=== PATIENT | male | born 1960 | race Caucasian/White ===

== ENCOUNTER 2019-08-14 04:58 | Inpatient (IN) ==
[2019-08-07 18:08] LABS: Appearance,Urine CLEAR; Bilirubin,Urine NEG (NEG); Color,Urine YELLOW; Culture Indicated,Urine NO; Glucose,Urine (UA) NEGATIVE (NEG); Ketones,Urine 5/TR mg/dL (NEG); Leukocyte Esterase,Urine NEG /uL (NEG); Nitrate,Urine NEG (NEG); Protein,Urine NEG (NEG); Specific Gravity,Urine 1.024 (1.000-1.035); Urine Blood NEG mg/dL (<0.03)
[2019-08-07 21:24] LABS: Basophils # (Auto) 0.05 K/mcL (0.00-0.30); Basophils % (Auto) 0.4 % (0.0-2.0); Eosinophils # (Auto) 0.11 K/mcL (0.00-0.70); Granulocytes % (Auto) 78.1 % (38.0-78.0); Hemoglobin 18.5 g/dL (13.7-17.5); Lymphocytes # (Auto) 1.54 K/mcL (1.50-4.80); Lymphocytes % (Auto) 13.8 % (15.5-49.0); Mean Cell Volume 91.1 fL (80.0-100.0); Mean Corpuscular HGB Conc 33.6 g/dL (31.0-36.0); Mean Platelet Volume 12.3 fL (7.4-10.4); Monocytes # (Auto) 0.75 K/mcL (0.10-0.90); Monocytes % (Auto) 6.7 % (1.0-12.0); Platelet Count 190 K/mcL (140-440); RBC 6.04 M/mcL (4.63-6.08); Red Cell Distribution Width 13.1 % (11.5-14.5); WBC 11.2 K/mcL (4.50-11.00)
[2019-08-07 21:40] LABS: AST/SGOT 27 U/l (0-37); Bilirubin,Total 0.6 mg/dL (0.0-1.0); Blood Urea Nitrogen 18 mg/dl (6-20); Carbon Dioxide 21 mmol/L (22-30); Chloride 103 mmol/L (96-108); Glucose 79 mg/dL (70-105)
[2019-08-07 23:38] LABS: Estimated Average Glucose(eAG) 100 mg/dL; Hemoglobin A1C 5.1 % HGB (4.0-6.0)
[2019-08-08 04:23] LABS: ALT/SGPT 26 U/l (0-40); Albumin 4.7 gm/dL (3.2-5.2); Alkaline Phosphatase 48 U/L (39-117); Globulin 2.3 gm/dL (2.2-3.7); Glomerular Filtration Rate 94
[2019-08-14] MEDS ORDERED: IPRATROPIUM/ALBUTEROL 3 ML AMPUL.NEB NEB PRN ×2 (05:00→09:14)
[2019-08-14] MEDS ORDERED: SCOPOLAMINE 1 PATCH PATCH TOPICAL PRN (05:00)
[2019-08-14] MEDS ORDERED: 0.9 % SODIUM CHLORIDE 9 ML, KETOROLAC 30 MG, ROPIVACAINE HCL/PF 49.5 ML, EPINEPHrine 0.... IJ SCH (06:00)
[2019-08-14] MEDS ORDERED: ceFAZolin 3 GM in DEXTROSE 5% IN WATER 50 ML IV SCH (06:00)
[2019-08-14] MEDS ORDERED: PREGABALIN 75 MG CAPSULE PO SCH (06:00)
[2019-08-14] MEDS ORDERED: oxyCODONE 10 MG TAB.ER.12H PO SCH (06:00)
[2019-08-14] MEDS ORDERED: CELECOXIB 200 MG CAPSULE PO SCH (06:00)
[2019-08-14] MEDS ORDERED: ROPIVACAINE HCL/PF 20 ML VIAL IJ ONE (07:55)
[2019-08-14] MEDS ORDERED: ONDANSETRON 4 MG/2 ML VIAL IV ONE (07:55)
[2019-08-14] MEDS ORDERED: KETAMINE 100 MG/ML ML IV ONE (07:55)
[2019-08-14] MEDS ORDERED: DEXAMETHASONE 10 MG/ML VIAL IV ONE (07:55)
[2019-08-14] MEDS ORDERED: TRANEXAMIC ACID 1,000 MG/10 ML VIAL IV ONE ×2 (07:55→09:55)
[2019-08-14] MEDS ORDERED: ePHEDrine 50 MG/ML AMPUL IV ONE (07:55)
[2019-08-14] MEDS ORDERED: LIDOCAINE HCL/PF 100 MG/5 ML SYRINGE IV ONE (07:55)
[2019-08-14] MEDS ORDERED: PROPOFOL 200 MG/20 ML VIAL IV ONE (07:55)
[2019-08-14] MEDS ORDERED: ACETAMINOPHEN 1,000 MG/100 ML BOTTLE IV ONE (09:14)
[2019-08-14] MEDS ORDERED: diphenhydrAMINE 50 MG/ML VIAL IV PRN (09:14)
[2019-08-14] MEDS ORDERED: ONDANSETRON 4 MG/2 ML VIAL IV PRN ×2 (09:14→09:55)
[2019-08-14] MEDS ORDERED: NALOXONE HCL 0.4 MG/ML VIAL IV PRN (09:14)
[2019-08-14] MEDS ORDERED: MEPERIDINE 25 MG/ML SYRINGE IV PRN (09:14)
[2019-08-14] MEDS ORDERED: LACTATED RINGERS 250 ML IV PRN (09:14)
[2019-08-14] MEDS ORDERED: PROMETHAZINE 25 MG/ML VIAL IV PRN (09:14)
[2019-08-14] MEDS ORDERED: fentaNYL 100 MCG/2 ML VIAL IV PRN (09:14)
[2019-08-14] MEDS ORDERED: LACTATED RINGERS 1,000 ML IV SCH (09:15)
[2019-08-14] MEDS ORDERED: GENTAMICIN SULFATE 800 MG/20 ML VIAL IR ONE (09:20)
[2019-08-14] MEDS ORDERED: FLEETS ADULT ENEMA PR PRN (09:55)
[2019-08-14] MEDS ORDERED: HYDROmorphone 1 MG/ML SYRINGE IV PRN (09:55)
[2019-08-14] MEDS ORDERED: BISACODYL 10 MG SUPP.RECT PR PRN (09:55)
[2019-08-14] MEDS ORDERED: POLYETHYLENE GLYCOL 3350 17 GM PACKET PO PRN (09:55)
[2019-08-14] MEDS ORDERED: MAGNESIUM HYDROXIDE 30 ML ORAL.SUSP PO PRN (09:55)
[2019-08-14] MEDS ORDERED: BENZOCAINE/MENTHOL 1 LOZENGE PO PRN (09:55)
--- NOTE | 2019-08-14 09:55 | Brief Operative Note ---
Brief Operative Note Date of procedure: 08/14/19 Pre-op diagnosis: Left knee DJD Post-op diagnosis: same Procedure: Left robotic assisted total knee arthroplasty Grafts/Implants: Yes ([place] Triathlon 8 CR femur, 7 tibia, 11mm insert, 39 patella) Anesthesia: spinal and GLMA Findings: severe arthritis Complications: none Surgeon: Ford Shore Grocery Deliverer: Parish Zamora Estimated blood loss (cc): 30 Specimens Removed/Pathology: none sent Condition: stable Disposition: PACU
[2019-08-14] MEDS ORDERED: ceFAZolin 1 GM VIAL IV SCH (10:00)
--- NOTE | 2019-08-14 10:16 | Operative Note ---
DATE OF OPERATION: 08/14/2019 PREOPERATIVE DIAGNOSIS: Left knee severe osteoarthritis. POSTOPERATIVE DIAGNOSIS: Left knee severe osteoarthritis. PROCEDURE PERFORMED: Left robotic-assisted total knee arthroplasty placing a Thierry Triathlon size 8 cruciate retaining femoral component, size 7 tibial baseplate, an 11 mm X3 tibial insert with a 39 mm patellar button. SURGEON: Ford Shore M.D. WATER RESOURCE PROJECT MANAGER: Sumanth Zamora PA-C. The PA's assistance was required for the safe and efficient completion of the entire case. This provider's expertise and technical skill were required throughout the case. The PA assisted with preoperative coordination, intraoperative retraction, wound closure, dressing and splint application, as well as postoperative documentation and care coordination. ANESTHESIA: Spinal plus general. DRAINS: None. SPECIMENS: Bone cuts were discarded. BLOOD LOSS: 30 mL. POSTOPERATIVE CONDITION: Stable. INDICATIONS FOR SURGERY: This is a 58-year-old male who has had longstanding, progressive worsening, severe knee pain. Radiographs showed [id number] osteoarthritis. FINDINGS AT SURGERY: As above. Post implantation showed good limb alignment, patellar tracking, and joint stability. PROCEDURE IN DETAIL: The patient had been seen preoperatively. Informed consent had been obtained after discussion of risks and benefits of surgery. Risks including, but not limited to, bleeding, possibly requiring transfusion; infection, possibly requiring implant removal and prolonged IV antibiotics; injury to nerves, blood vessels, and other surrounding structures; anesthetic risks; incomplete or no resolution of symptoms; swelling; stiffness; pain; instability; DVT and pulmonary embolus risks; and the possibility of needing further revision joint surgery. Patient understood and wished to proceed. Correct operative site was marked in preoperative holding, and patient was taken to the operating room and general anesthesia was induced. The left lower extremity was then prepped and draped in normal sterile fashion, and a timeout was performed verifying patient name, operative site, and plan. Ioban was placed over all skin surfaces and an Esmarch was used to exsanguinate the extremity, and tourniquet was inflated to 300 mmHg. A midline incision was made with a scalpel through skin and subcutaneous tissue, then IrriSept was irrigated and a medial parapatellar arthrotomy was made, and then a subperiosteal exposure was done of the anterior medial tibia. Anterior horns of the menisci were removed, as well as retropatellar fat pad. ACL was transected. We then did a resection of the patella freehand, premeasuring thickness and then placing a cut protector after. We then placed our femoral and tibial checkpoints, and then a scalpel was used to make two stab incisions over the femur and two over the tibia and bicortical pins placed. The arrays were connected. The green probe was used to identify medial and lateral malleoli and double-checks were made with the green probe of the femoral and tibial check points. Blue probe was then used to do our mapping. A rongeur was used to remove osteophytes. We then used the spoons to check our flexion-extension gaps and made adjustments to get as close to 17 mm gaps on all four numbers as possible. Once this was completed, we then used the robotic arm to make our bone cuts. The tibia was prepared with the boss reamer and keel punch and externally rotated as bone coverage would allow. A keeled tibial trial was placed, and the femur was elevated. Curved osteotome and curet were used to remove posterior osteophytes. Femoral trial was then impacted and pinned into place. This was placed flush along the lateral cortex of the femur and then peg holes were drilled. A 9 insert trial was placed and then the knee was taken into extension. We then prepared the patella medializing maximally and sized this to a 39 patella. We then checked the patellar tracking and it was stable. We then removed trial implants. Definitive implants were opened while the joint was irrigated with IrriSept. After waiting a minute, we pulse lavaged with saline. Antibiotic cement was mixed and then the cancellous bone surfaces were dried with the CO2 gun. We then cemented the tibia, followed by the femur. Excess cement was removed, and the trial insert was placed, and the knee was taken into extension. The patella was then cemented. After excess cement was removed, we filled the joint with IrriSept. The tibial and femoral check points were removed. The extension was checked and then we removed our arrays and our pins. We injected pain cocktail in the pericapsular and subcutaneous tissues. Once cement had fully hardened, we flexed the knee up. We removed the insert trial, injected pain cocktail in the posteromedial capsule. We then opened a 11 mm CR insert, and this was carefully impacted and verified to be fully seated. The knee was then placed in extension and filled with IrriSept. After a minute it was copiously pulse lavaged with saline. We then flexed the knee to 45 degrees of flexion. A #2 FiberWire aofsoz-sq-wpohr was used around the superior quadrant of the patella, #1 Vicryl [id number] around the inferior quadrant. Running #1 Vicryl was used for patellar tendon and quad tendon. Final IrriSept irrigation was done, after a minute final pulse lavage, and then 2-0 Monocryl was used for subcutaneous and maggy for skin. Xeroform and sterile dressing were applied. Tourniquet was released. The patient was awakened, extubated, and transferred to recovery in stable condition. BJB:duc Job ID: [id number] Doc ID: [id number] Ford Shore MD
--- NOTE | 2019-08-14 10:55 | XRay Report ---
CLINICAL INFORMATION: Post-op total knee COMPARISON: None. FINDINGS: Total knee prostheses is anatomically aligned. No osseous abnormality. Periarticular gas and soft tissue swelling seen. IMPRESSION: Negative Interpreted and Authenticated by: Renard William 08/14/19
[2019-08-14] MEDS: 0.9 % SODIUM CHLORIDE 1,000 ML IV SCH ×2 (11:03→20:47)
[2019-08-14] MEDS: KETOROLAC 30 MG/ML VIAL IV SCH ×3 (12:30→23:21)
[2019-08-14] MEDS: HYDROcodone/APAP 10/325MG TABLET PO PRN ×3 (12:57→21:05)
[2019-08-14] MEDS: 0.9 % SODIUM CHLORIDE 10 ML SYRINGE IV SCH ×2 (12:58→21:04)
[2019-08-14] MEDS: ceFAZolin 1 GM VIAL IV SCH ×2 (15:30→23:21)
[2019-08-14] MEDS ORDERED: SENNOSIDES 1 TABLET PO SCH (21:00)
[2019-08-14] MEDS ORDERED: ASPIRIN 81 MG TAB.CHEW PO SCH (21:00)
[2019-08-14] MEDS ORDERED: DOCUSATE SODIUM 100 MG CAPSULE PO SCH (21:00)
[2019-08-15] MEDS: HYDROcodone/APAP 10/325MG TABLET PO PRN ×2 (01:03→05:26)
[2019-08-15] MEDS: 0.9 % SODIUM CHLORIDE 10 ML SYRINGE IV SCH (05:26)
[2019-08-15] MEDS: KETOROLAC 30 MG/ML VIAL IV SCH (05:26)
--- NOTE | 2019-08-15 07:08 | Discharge Summary ---
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 Chief Complaint: [] Date of admission: 08/14/19 04:58 Discharge date: 08/15/19 Primary care physician: Mohinder FIERRO Hospital Course Discharge diagnosis: L knee OA Time Spent with Patient Time attestation: Total time spent providing and/or coordinating discharge services: Physical Examination Exam Clean and dry: Yes Weight bearing status: as tolerated Discharge Instructions - TKA Patient Instructions Total Knee Protocol: For Total Knee: Start ROM VINOD with stationary bike or rocking chair. Work on gaining full extension of knee. Posterior dislocation precautions provided. Hip abductor strengthening and gait training instructions provided. Apply Cryocuff as instructed. Discharge Plan Patient/Caregiver Discharge Instructions Activity: as per physical therapy and increase activity as tolerated Prescriptions: New hydrocodone-acetaminophen 10-325 mg tablet 1 - 2 tab PO Q4-6HP PRN (Reason: pain) Qty: 60 RF: 0 aspirin 81 mg tablet,delayed release (DR/EC) 81 mg PO BID Qty: 30 RF: 0 Continued Topical Testosterone 200 mg TRANSDERMA QDAY Qty: 30 RF: 5 losartan 100 mg tablet 100 mg PO QDAY Qty: 90 RF: 3 amlodipine 5 mg tablet 5 mg PO QDAY Qty: 90 RF: 1 acetaminophen 500 MG tablet 500 mg PO Q4HP PRN (Reason: Pain) RF: 0 multivitamin,tk-dycy-hwormylm 1 EACH tablet 2 each PO DAILY RF: 0 Dim 200 Diindolylmethane 2 cap PO DAILY RF: 0 Other Ambulatory Orders: Physical Therapy at Discharge - TKA (Routine) Location: None Selected Ordered By: Parish Del Rosario (ONCE) Location: None Selected Ordered By: Parish Zamora Follow Up Plan Follow up with: Parish Zamora PA-C [Physician Wash Oil Cooler Operator] - 08/29/19 Rehab Potential: Good I certify that the patient requires SNF services: No Overall status at discharge: patient is progressing back to baseline Discharge Orders: Discharge Order (Routine); Ordered 08/15/19 Ordered By: Parish R Obray Pending Pending Pending: Resuscitation Status Full Code Diet Consistent Carbohydrate Diet Start MonAug 13 09 Hydrocodone Bitart/Acetaminophen ([place] 10/325mg) 0 tab PO Q4HP PRN; Protocol PRN Reason: PAIN LEVEL 3-6 Last Admin: 08/15/19 05:26 Dose: 2 tab Documented by: Admin: 08/15/19 01:03 Dose: 2 tab Documented by: Admin: 08/14/19 21:05 Dose: 2 tab Documented by: Admin: 08/14/19 17:00 Dose: 2 tab Documented by: Admin: 08/14/19 12:57 Dose: 2 tab Documented by: NORMA Aspirin (Aspirin) 81 mg PO BID [facility] Last Admin: 08/14/19 21:04 Dose: 81 mg Documented by: GLORY Docusate Sodium (Colace) 100 mg PO BID [facility] Last Admin: 08/14/19 21:04 Dose: 100 mg Documented by: GLORY Ketorolac Tromethamine (Toradol) 30 mg IV Q6 [facility] Stop: 08/16/19 06:01 Last Admin: 08/15/19 05:26 Dose: 30 mg Documented by: Admin: 08/14/19 23:21 Dose: 30 mg Documented by: Admin: 08/14/19 17:41 Dose: 30 mg Documented by: [facility] Admin: 08/14/19 12:30 Dose: 30 mg Documented by: Nima Senna (Senokot) 2 tab PO HS [facility] Last Admin: 08/14/19 21:04 Dose: 2 tab Documented by: GLORY Sodium Chloride (Saline Flush) 10 ml IV Q8 [facility] Last Admin: 08/15/19 05:26 Dose: 10 ml Documented by: Admin: 08/14/19 21:04 Dose: 10 ml Documented by: Admin: 08/14/19 12:58 Dose: Not Given Documented by: [facility] Shift Summary 08/15/19 03:40 Shift Summary by Ivette Espinosa LTKA is A&O,Colton wrap to knee is CDI.VSS on RA. Has been using the cryo cuff which he says really helps with the discomfort. Patient taking 2 norcos every 4 hrs along with scheduled toradol and this has maintained his pain. stayed last night and patient should discharge today. Will update at bedside. Initialized on 08/15/19 03:40 - END OF NOTE
[2019-08-15] MEDS ORDERED: MULTIVIT,THER IRON,CA,FA & MIN 1 TABLET PO SCH (09:00)
[2019-08-15] MEDS ORDERED: TESTOSTERONE TOPICAL SCH (09:00)
[2019-08-15] MEDS ORDERED: amLODIPine 5 MG TABLET PO SCH (09:00)
[2019-08-15] MEDS ORDERED: LOSARTAN 50 MG TABLET PO SCH (09:00)
== END 2019-08-15 08:20 | disposition home or self-care (01) | DRG 554 ==
LOC: MEDSUR 04:58
PROVIDERS: ADMIT Orthopaedic Surgery; ATTEND Orthopaedic Surgery